=== PATIENT | female | born 1970 | race Caucasian/White ===

== ENCOUNTER 2018-07-30 14:18 | Emergency (ER) | payer MEDICAID ==
[2018-07-30 14:32] VITALS: RESP 18
[2018-07-30] MEDS ORDERED: Naproxen 550 mg Tab PO STA (14:55)
[2018-07-30] MEDS ORDERED: Naproxen 550 mg Tab PO ONE (15:08)
--- NOTE | 2018-07-30 15:14 | C.PDOC ---
History Of Present Illness 48 y/o female,w/PMhx of HTN, presents to the ER complaining of intermittent headaches. She has had these headaches for years and states she was prescribed a medication from her primary in the past that provided relief, but she stopped it a few months ago and the headaches returned. She does not know the name of the medication. Patient states that she has headache in different places depending on the day, and describes them as dull aches. Does not drink much water throughout the day. No headache now. She states that her neck is mildly sore and "tight." Currently, she denies having headache, fever, chills, vision changes, dizziness, chest pain, SOB, weakness, numbness, and parasthesias. Time Seen by Provider: 07/30/18 14:37 Chief Complaint (Nursing): Headache History Per: Patient History/Exam Limitations: no limitations Onset/Duration Of Symptoms: Days Current Symptoms Are (Timing): Gone Severity: Moderate Past Medical History Reviewed: Historical Data, Nursing Documentation, Vital Signs Vital Signs: Last Vital Signs Temp 98.4 F 07/30/18 14:28 Pulse 74 07/30/18 14:28 Resp 18 07/30/18 14:28 BP 138/84 07/30/18 14:28 Pulse Ox 400 H 07/30/18 14:28 - Medical History PMH: HTN Surgical History: No Surg Hx Family History: States: No Known Family Hx - Social History Hx Alcohol Use: No Hx Substance Use: No - Immunization History Hx Tetanus Toxoid Vaccination: No Hx Influenza Vaccination: Yes Hx Pneumococcal Vaccination: No Review Of Systems Except As Marked, All Systems Reviewed And Found Negative. Constitutional: Negative for: Fever, Chills Eyes: Negative for: Vision Change ENT: Negative for: Nose Congestion, Throat Pain Cardiovascular: Negative for: Chest Pain, Palpitations Respiratory: Negative for: Cough, Shortness of Breath Gastrointestinal: Negative for: Nausea, Vomiting, Abdominal Pain Genitourinary: Negative for: Dysuria, Frequency Musculoskeletal: Positive for: Neck Pain. Negative for: Shoulder Pain, Back Pain Skin: Negative for: Rash Neurological: Negative for: Weakness, Numbness, Headache (currently resolved), Dizziness Physical Exam - Physical Exam Appears: Well, Non-toxic, No Acute Distress Skin: Normal Color, Warm, Dry Head: Atraumatic, Normacephalic, No Tenderness Eye(s): bilateral: Normal Inspection, PERRL, EOMI Ear(s): Bilateral: Normal Nose: Normal Oral Mucosa: Moist Neck: Normal ROM, Paracervical Tenderness (left with muscle spasm), Supple Chest: Symmetrical Cardiovascular: Rhythm Regular Respiratory: Normal Breath Sounds, No Rales, No Rhonchi, No Wheezing Back: Normal Inspection, No CVA Tenderness, No Vertebral Tenderness, No Paraspinal Tenderness Extremity: Normal ROM, Capillary Refill (<2s) Extremity: Bilateral: Atraumatic, Normal ROM Pulses: Left Radial: Normal, Right Radial: Normal Neurological/Psych: Oriented x3, Normal Speech, Normal Cognition, Normal Cranial Nerves, Cerebellar Signs (normal), Normal Motor, Normal Sensation ED Course And Treatment O2 Sat by Pulse Oximetry: 98 (RA) Pulse Ox Interpretation: Normal Medical Decision Making Medical Decision Making: Plan: --Flexeril PO --Naproxen PO Updates: On re-evaluation, patient states that her symptoms have improved. Neck pain has lessened. Patient will be discharged and instructed to follow up with PMD. Patient verbalized understanding and states she will followup as instructed. Diagnostic testing results and plan of care discussed with patient. Strict instructions given regarding prescription use, importance of followup, and signs/symptoms to return to ER including weakness, numbness, paresthesias, dizziness, vision changes, or any other new/worsening symptoms. Pt verbalized understanding of discussion. Patient is A&Ox3, ambulating with steady gait, with vital signs stable for discharge. Disposition - Disposition Disposition: HOME/ ROUTINE Disposition Time: 15:20 Condition: IMPROVED Additional Instructions: Increase fluids Naproxen daily as needed for pain Flexeril every 8 hours as needed for muscle spasm, do not take before driving or working Followup with primary doctor tomorrow Continue home medications as prescribed Return to ER with any new/worsening symptoms Prescriptions: Cyclobenzaprine [Flexeril] 5 mg PO Q8H PRN #9 tab PRN Reason: spasm Naproxen [Naprosyn] 500 mg PO DAILY PRN #14 tablet PRN Reason: Pain, Moderate (4-7) Instructions: Tension Headache Forms: General Discharge Instructions, [facility] ([place]), Work Excuse - Clinical Impression Clinical Impression: Muscle spasm - 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 - Scribe Statement The provider has reviewed the documentation as recorded by the Lynnetteibe Michael Maria Provider Attestation All medical record entries made by the Lynnetteiblonnie were at my direction and personally dictated by me. I have reviewed the chart and agree that the record accurately reflects my personal performance of the history, physical exam, medical decision making, and the department course for this patient. I have also personally directed, reviewed, and agree with the discharge instructions and disposition.
[2018-07-30 15:24] VITALS: BP 134/83; PULSE 91; TEMP 98.5
[2018-07-30 18:03] VITALS: O2SAT 98
== END 2018-07-30 15:25 | disposition home or self-care (01) ==
LOC: C.ER 14:18
DX: M62.838 Other muscle spasm (principal)